=== PATIENT | female | born 1935 | race American Indian/Alaskan Native ===

== ENCOUNTER → 2016-09-21 | Outpatient (CLI) | payer OTHER ==
[2016-09-21 16:37] LABS: BASOPHILS # (AUTO) 0.03 10*3/UL; BASOPHILS % (AUTO) 0.5 % (0-1); EOSINOPHILS % (AUTO) 2.5 % (0-8); HEMATOCRIT 31.9 % (37.0-47.0); HEMOGLOBIN 10.1 g/dL (12.0-16.0); IMM GRAN % (AUTO) 0.2 % (0-5); IMM GRAN# (AUTO) 0.01 10*3/UL; LYMPHOCYTES # (AUTO) 1.37 10*3/uL; LYMPHOCYTES % (AUTO) 24.6 % (10-50); MEAN CORPUSCULAR HEMOGLOBIN 27.8 PG (27-31); MEAN CORPUSCULAR HGB CONC 31.7 g/dL (33-37); MEAN PLATELET VOLUME 9.1 FL (7.4-12.2); MONOCYTES # (AUTO) 0.43 10*3/UL (0.3-0.8); MONOCYTES % (AUTO) 7.7 % (5-15); NEUTROPHILS % (AUTO) 64.5 % (50-80); RDW COEFFICIENT OF VARIATION 14.7 % (11.5-14.5); RED BLOOD COUNT 3.63 10^6/uL (4.20-5.40); WHITE BLOOD COUNT 5.58 10^3/uL (4.8-10.8)
[2016-09-21 16:38] LABS: BILIRUBIN,TOTAL 0.5 mg/dL (0.3-1.2); CALCIUM 9.7 mg/dL (8.7-10.7); POTASSIUM 3.6 meq/L (3.8-5.2); TOTAL PROTEIN 6.8 g/dL (6.1-8.0)
[2016-09-21 17:22] LABS: PLATELET MORPHOLOGY COMMENT NORMAL MORPHOLOGY (NORM)
== END ==
LOC: MOB LAB 15:25
DX: D64.9 Anemia, unspecified (principal); E55.9 Vitamin D deficiency, unspecified; I42.0 Dilated cardiomyopathy; I27.2 Other secondary pulmonary hypertension
CPT/HCPCS: 36415; 80053; 82306; 84443; 85025

== ENCOUNTER 2016-11-20 20:35 | Inpatient (IN) | payer OTHER ==
[2016-11-20] MEDS ORDERED: NORMAL SALINE 10 ML SYRINGE FLUSH IVP PRN ×2 (21:15→23:54)
[2016-11-20] MEDS ORDERED: Sodium Chloride 0.9% 1,000 ML PRIMARY IV ONE (21:15)
[2016-11-20] MEDS ORDERED: IPRATROPIUM/ALBUTEROL SULFATE 3 ML NEB NEB ONE (21:20)
[2016-11-20 21:26] LABS: BASOPHILS # (AUTO) 0.03 10*3/UL; BASOPHILS % (AUTO) 0.5 % (0-1); EOSINOPHILS # (AUTO) 0.12 10*3/UL; HEMATOCRIT 27.4 % (37.0-47.0); LYMPHOCYTES # (AUTO) 1.03 10*3/uL; MEAN CORPUSCULAR HEMOGLOBIN 27.2 PG (27-31); MEAN CORPUSCULAR HGB CONC 29.2 g/dL (33-37); MEAN CORPUSCULAR VOLUME 93.2 FL (81-99); MONOCYTES # (AUTO) 0.41 10*3/UL (0.3-0.8); MONOCYTES % (AUTO) 6.7 % (5-15); NEUTROPHILS # (AUTO) 4.48 10*3/UL; NEUTROPHILS % (AUTO) 73.7 % (50-80); RED BLOOD COUNT 2.94 10^6/uL (4.20-5.40)
[2016-11-20 21:29] LABS: PLATELET MORPHOLOGY COMMENT NORMAL MORPHOLOGY (NORM); RBC MORPHOLOGY COMMENT NORMAL MORPHOLOGY (NORM); WBC MORPHOLOGY COMMENT NORMAL MORPHOLOGY (NORM)
[2016-11-20 21:39] LABS: CALCIUM 9.7 mg/dL (8.7-10.7); SERUM ALBUMIN 3.4 g/dL (3.5-4.8)
[2016-11-20 21:44] LABS: CREATINE KINASE MB 0.95 NG/ML (0.00-5.00); TROPONIN I 0.047 ng/mL (< 0.040)
--- NOTE | 2016-11-20 21:50 | EKG ---
[address] [place] [address] Measurements Intervals [place] Rate: 52 P: MD: 0 QRS: -20 QRSD: 122 T: 76 QT: 471 QTc: 452 Interpretive Statements PROBABLE ATRIAL FIBRILLATION WITH [facility] OR ABERATED CONDUCTION INTRVENTRICULAR CONDUCTION DELAY SUGGEST LONG RHYTHM STRIP Compared to ECG 03/20/2014 23:00 No significant change Electronically Signed On 11-21-16 08:55:03 MDT by Eric Yu [id number]
[2016-11-20 21:51] LABS: VENOUS PH 7.3 (7.32-7.42)
[2016-11-20] MEDS ORDERED: FUROSEMIDE 10 MG/1 ML - 2 ML VIAL IVP ONE (22:19)
--- NOTE | 2016-11-20 22:28 | PDOC ---
General Adult HPI - General Chief Complaint: General Medical Stated Complaint: shortness of breath; hypoxia, confusion Date Seen by Provider: 11/20/16 Time Seen by Provider: 20:45 Source: POSITIVE: Patient, EMS, Other (daughter) Exam Limitations: POSITIVE: No limitations Nurse's Notes Reviewed & Considered: Yes EMS Report Reviewed & Considered: Verbal - History of Present Illness Initial Comment: The patient is an 81-year-old female who is brought to the emergency room by ambulance. The patient lives with her daughter; daughter has medical power of human resource adviser for the patient. Daughter states that she returned home from supper and noticed that her mother was poorly responsive and seems somewhat confused. She noticed that her nasal cannula from which the patient receives oxygen, had slipped off her nose. The daughter measured the patient's SaO2 and she states that she found it to be 65%. The daughter replaced the patient's cannula and increased her oxygen to 4-5 L (patient is normally on 3-4 L) per minute, and patient seemed to perk up. The patient's daughter states that the patient has a history of atrial fibrillation for which she takes Xarelto. Daughter reports that the patient had a sizable epistaxis yesterday and another episode 8 days ago. Review of medical records shows that the patient has a history of chronic renal failure and congestive heart failure and atherosclerotic cardiovascular disease. Patient is very hard of hearing. She denies any head, chest or abdominal pain. She states she is somewhat short of breath. No history of fever recently. No cough. Have you received a tetanus shot in the past 10 years?: Yes Body Location Affected: REPORTS: Chest (Shortness of breath) Timing: REPORTS: Gradual Duration: <24 hours Severity: Moderate Quality: REPORTS: Other (Patient denies any pain anywhere) Context: REPORTS: None, Sitting, Standing, Activity, Emotional stress, Coughing , Recent Trauma, Recent Surgery, Sleep, Rest, Lifting, Turning, Bending, Fall, Near Fall, Other Modifying Factors: improves with: Nothing Similar Symptoms Previously: Yes Recent Care Received: REPORTS: Denies Any Prior Injuries Related to Current Complaint?: No - Patient Home Medications Home Medications: Home Medications Albuterol/Ipratrop Neb Soln [Duoneb Neb Soln] 3 ml INH Q4H PRN PRN 04/03/14 Calcium Carbonate/Vitamin D3 [Calcium 600 + Vit D 200 Tablet] 1 tab PO BID 04/03 Polyethylene Glycol 3350 [Miralax] 17 gm PO PRN PRN 04/03/14 Acetaminophen [Tylenol Extra Strength] 1 tab PO QD PRN #30 tab 10/05/15 Albuterol Sulfate [Ventolin Hfa] 90 mg INH Q4H PRN PRN #2 inhaler 10/05/15 Cranberry Extract [Cranberry] 1 cap PO BID #60 cap 10/05/15 Miconazole Nitrate 1 gm MC BID PRN #1 10/05/15 Nystatin 1 each MC TID PRN #30 bottle 10/05/15 Erlin Reyes [Preparation H Totables] 1 each TOPICAL QD PRN #48 10/05/15 Pantoprazole Sodium [Protonix] 1 tab PO QD #90 tab 05/18/16 Nitroglycerin SL Tab [Nitrostat Sl Tab] 1 tab PO PRN PRN #9 tab 05/23/16 Cephalexin [Keflex] 1 cap PO QD #30 cap 05/25/16 Carvedilol 1 tab PO BID #60 tab 06/08/16 Fluticasone/Salmeterol [Advair 500-50 Diskus] 1 puff INH BID #2 inhaler Allopurinol 2 tab PO QD #60 tab 09/18/16 Isosorbide Mononitrate [Isosorbide Mononitrate Er] 1 tab PO TID #90 tab Multivitamin with Minerals [Icaps Plus] 1 tab PO QD #30 tab 09/21/16 Potassium Chloride 1 tab PO TID #90 tab 09/26/16 Amlodipine Besylate 1 tab PO QD #90 tab 10/23/16 Furosemide [Lasix] 0.5 tab-cap PO BID #45 tab-cap 10/27/16 Rivaroxaban [Xarelto] 1 tab PO QD #30 tab 10/31/16 - Patient Allergies Allergies/Adverse Reactions: Allergies Allergy/AdvReac Type Severity Reaction Status Date / Time latex [Latex] Allergy Severe RASH Verified 11/20/16 20:51 linezolid [From Zyvox] Allergy Severe leukopenia Verified 11/20/16 20:51 morphine Allergy Severe ITCHING Verified 11/20/16 20:51 Penicillins Allergy Severe RASH Verified 11/20/16 20:51 vancomycin Allergy Severe FLUSHING Verified 11/20/16 20:51 bacitracin Allergy Intermediate rash Verified 11/20/16 20:51 [From Neosporin ([id number])] bacitracin zinc Allergy Intermediate rash Verified 11/20/16 20:51 [From Neosporin ([id number])] diphenhydramine HCl Allergy Intermediate RASH Verified 11/20/16 20:51 [From Benadryl] neomycin sulfate Allergy Intermediate rash Verified 11/20/16 20:51 [From Neosporin ([id number])] polymyxin B Allergy Intermediate rash Verified 11/20/16 20:51 [From Neosporin ([id number])] adhesive tape [Adhesive Tape] AdvReac Intermediate RASH Verified 11/20/16 20:51 Past Medical History - heen HEENT History: Cataracts, Hard of Hearing, Dentures/Partials, Other (please comment) Additional HEENT History: wears glasses for reading Cardiovascular History: Hypertension, CHF, CAD, Arrhythmia, DVTs Additional Cardiovasular History: 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 Chronic A-fib. Pulmonary hypertension Respiratory History: Asthma, COPD, Sleep Apnea, Home Oxygen Use, Home CPAP Use Additional Respiratory History: Wears 2-4L at home Gastrointestinal History: GERD, Other (please comment) Additional Gastrointestinal History: large hernia RLQ, Robert's esophagus, abcessed appe Genitourinary History: Recurrent UTI, Renal Disease, Kidney Stones, Incontinence , Renal Failure Endocrine History: Denies History Musculoskeletal History: Arthritis, Osteoporosis, Gout, Muscle Weakness, Limited ROM, Joint Pain, Physical Limitation Prosthesis or Implant: Yes Additional Musculoskeletal History: L) TKA. R)Ankle Fx x 2 Neurological History: Encephalitis, Other (please comment) Additional Neurological History: Previous Neck Surgeries, fusion of cervical region. "sundowners" Blood Disorders: Anemia, Clotting Disorders, Previous Bld Transfusions, Other ( please comment) Additional Blood Disorders History: pt on xarelto Psychiatric History: Depression History of Sexually Transmitted Diseases: No Female Reproductive History: Other (please comment) Additional Female Reproductive History: cervical cancer after second child Obstetrical History: Denies History Cancer History: Other (please comment) Cancer Treatment / Date(s) of Treatment: 1969 In Past Year Been Physically Harmed or Verbally Threatened: No History of MDRO: Yes History of Other Communicable Diseases: No Tobacco Use: Former Smoker Alcohol Use: Rarely Substance Use Type: None Previous Surgical History: Yes Type / Date of Surgery: C4-5,6-7 cervical fusion, cholecystectomy, total abdominal hysterectomy, left total knee replacement complicated with MRSA infection requiring removal, and placement of a spacer, appendectomy, kidnes stones removed. Anesthesia Reactions: No Malignant Hyperthermia: No Significant Family History: Asthma, Heart disease, Cancer, Diabetes, Hypertension Past Medical History Reviewed: Reviewed - No Changes ROS - Limitations ROS Limitations: No Limitations Constitution: REPORTS: Denies Symptoms Cardiovascular: REPORTS: Blood Pressure Problem (Blood pressure has been somewhat elevated today according to daughter; blood pressure on arrival was 153 /103) Respiratory: REPORTS: Shortness Of Breath Neurological: REPORTS: Confusion (As above) Gastrointestinal: REPORTS: Denies GI Symptoms Endocrine: REPORTS: Denies Symptoms Musculoskeletal: REPORTS: Denies MS Symptoms Genitourinary: REPORTS: Denies Symptoms Eyes: REPORTS: Denies Symptoms ENT: REPORTS: Hearing Loss (Very hard of hearing), Nose Bleed (Yesterday and ate days ago) Skin: REPORTS: Denies Skin Symptoms Lympathic: REPORTS: Denies Lympathic Symptoms Immunologic: POSITIVE: Denies Symptoms Psychiatric: POSITIVE: Denies Psych Symptoms General Adult Exam - General Appearance General Appearance: POSITIVE: Alert, Cooperative, No Acute Distress, No Evidence of Trauma - HEENT HEENT: POSITIVE: Head Inspection Nml, Eyes Inspection Nml, Ears Inspection Nml, Nose Inspection Nml, Oral/Dental Inspect. Nml, Pharynx Inspect. Nml, PERRL, EOMI - Pupils Pupil Size: 4 mm: Bilateral (PERRLA) - Neck Neck: POSITIVE: Normal Inspection, Thyroid Normal - Respiratory Respiratory: POSITIVE: Rales (Diffuse rales both lung loya) - Cardiovascular Cardiovascular: POSITIVE: No Gallop, PMI Normal, Decreased Pulse (Pulse around 50/m), Irregularly Irreg. Rhythm (Mildly irregularly irregular), Murmur (Grade 1 to 2/6 systolic ejection murmur over her precordium) Peripheral Pulses: Radial (R): 2+, Radial (L): 2+ Murmur: Systolic: Grade 2 - Abdomen Abdomen: Soft: (All Quadrants), Normal Bowel Sounds: (All Quadrants), Denies Tenderness: (All Quadrants), No Splenomegaly: (All Quadrants), No Hepatomegaly: (All Quadrants), No Guarding: (All Quadrants), No Rebound: (All Quadrants), No Palpable Pulse: (All Quadrants), No Palpabale Mass: (All Quadrants), No Distention: (All Quadrants), No Rigidity: (All Quadrants) Additional Abdominal Details: Abdominal wall hernia right upper abdomen - Back Back: POSITIVE: Normal Inspection - Skin Skin: POSITIVE: Normal Color, Warm, Dry, No Rash - Extremities Extremity: Non-Tender: (All Extremities), Normal ROM: (All Extremities), Normal Inspection: (All Extremities) - Neurological / Psychological Neurological: POSITIVE: 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 Lab Results Reviewed: Yes (BNP over 4000) Lab Results:: Laboratory Results 11/20/16 11/20/16 Range/Units 20:30 21:38 WBC 6.08 (4.8-10.8) 10^3/uL RBC 2.94 L (4.20-5.40) 10^6/uL Hgb 8.0 L (12.0-16.0) g/dL Hct 27.4 L (37.0-47.0) % MCV 93.2 (81-99) FL MCH 27.2 (27-31) PG MCHC 29.2 L (33-37) g/dL RDW Std Deviation 52.1 H (39-50) fL RDW Coeff of Elli 16.1 H (11.5-14.5) % Plt Count 140 (140-350) 10*3/uL MPV 9.0 (7.4-12.2) FL Immature Gran % (Auto) 0.2 (0-5) % Neut % (Auto) 73.7 (50-80) % Lymph % (Auto) 16.9 (10-50) % Miner % (Auto) 6.7 (5-15) % Eos % (Auto) 2.0 (0-8) % Baso % (Auto) 0.5 (0-1) % Immature Gran # (Auto) 0.01 10*3/UL Neut # (Auto) 4.48 10*3/UL Lymph # (Auto) 1.03 10*3/uL Miner # (Auto) 0.41 (0.3-0.8) 10*3/UL Eos # (Auto) 0.12 10*3/UL Baso # (Auto) 0.03 10*3/UL WBC Morphology Comment Normal morphology (NORM) Plt Morphology Comment Normal morphology (NORM) RBC Morph Comment Normal morphology (NORM) PT 12.3 H (9.7-11.4) secs INR 1.19 (0.00-5.90) N/A D-Dimer 0.29 (0.00-0.59) mg/L VBG pH 7.30 L (7.32-7.42) VBG pCO2 83 H (45-55) mmHg VBG HCO3 41 H (22-26) mmol/L VBG Base Excess 15 H (-2-2) MMOL/L Sodium 142 (135-145) meq/L Potassium 5.1 (3.8-5.2) meq/L Chloride 95 L (98-112) meq/L Carbon Dioxide 39 H (23-33) meq/L Anion Gap 8 (5-20) BUN 33 H (7-22) mg/dL Creatinine 1.1 (0.50-1.20) mg/dL Estimated GFR (>60 ml/min/1.73m(2)) BUN/Creatinine Ratio 30.00 H (6-20) Glucose 100 (78-110) mg/dL Calculated Osmolality 300.0 H (267-292) mOsm/kg Calcium 9.7 (8.7-10.7) mg/dL Total Bilirubin 0.5 (0.3-1.2) mg/dL AST 21 (8-39) IU/L ALT 26 (9-52) IU/L Alkaline Phosphatase 47 (38-126) IU/L CK-MB (CK-2) 0.95 (0.00-5.00) NG/ML Troponin I 0.047 H (< 0.040) ng/mL NT-Pro-B Natriuret Pep 4410 H (0-450) PG/ML Total Protein 5.6 L (6.1-8.0) g/dL Albumin 3.4 L (3.5-4.8) g/dL Globulin 2.2 L (2.50-4.10) g/dL Albumin/Globulin Ratio 1.50 (1.3-2.0) mg/g EKG Interpreted/Reviewed By Me:: Yes (atrial fibrillation with a ventricular response of around 50) EKG Interpretation:: POSITIVE: Normal Intervals, Normal QRS, Normal ST/T, Abnormal EKG (Atrial fibrillation with a slow ventricular response) - Patient's Progress Pain Medication Addressed: POSITIVE: Not Applicable School/Work Release Addressed: POSITIVE: Not Applicable Re-Examine Time: 22:00 Re-Examine Comment: Patient given Lasix 20 mg IV. Patient has remained comfortable in the emergency room and she maintained her oxygen saturation at around 96% on 4 L. Review of most recent laboratory values show that on 2016 her hemoglobin was 10.1 and hematocrit was 31.9, and today her hemoglobin is 8.0 and hematocrit is 27.4; likely patient has dropped her hematocrit and hemoglobin as result of for 2 episodes of recent epistaxes, which could be contributing to her shortness of breath. Renal functions are okay at this time. Diagnosis of congestive heart failure and anemia discussed with the patient and her daughter. Patient is admitted to hospitalist for further evaluation and treatment. Status: POSITIVE: Unchanged, Re-Examined Antibiotics Given: No - Consult Consult (If Yes, Name of Consulting MD & Time Called): Yes (Dr. Ochoa, hospitalist, [id number]) Consulting MD will see pt:: POSITIVE: [facility] Admit Counseled: POSITIVE: Patient, Family, RE: Lab Results, RE: Radiology Results, RE : DX, RE: Need for F/U Patient Care Time - Estimated PCT Patient Care Time (In Minutes): 55 Vital Signs - Recent Vital Signs Vital Signs: Vital Signs (Last 8 hours) Temp Pulse Resp BP Pulse Ox 11/20/16 20:40 98.5 F 44 L 20 150/103 96 - VS Reviewed Vital Signs Reviewed: Yes Discharge Clinical Impression: Congestive heart failure, Anemia Discharge Disposition: Admit to Inpatient Condition: Fair Date Decision to Admit to Inpatient: 11/20/16 Time Decision to Admit to Inpatient: 22:00
--- NOTE | 2016-11-20 22:49 | PDOC ---
History and Physical - History of Present Illness Date and Time of Service: 11/20/2016 11:30 PM Chief Complaint: Episode of for repeat mental status while oxygen saturation was low, high blood pressure and low pulse rate today History of Present Illness: This is a 81 years old female with medical history significant for history of atrial fibrillation on anticoagulation, COPD on oxygen, hypertension, gout, history of urinary tract infection on suppressive treatment, history of coronary artery disease with previous stents and history of peripheral neuropathy who was brought to the hospital by ambulance. The daughter who is her health care coordinator she said that the [facility] and noticed her mother was not acting right, her eyes were "glazed" and did not follow her finger when she instructed the mother to do so, her nasal cannula seems to be slipped off from the nose, The daughter measured her oxygen sats and was 65 so she increased her oxygen gradually until she gets to the 90s she did check her blood pressure and her blood pressure was elevated and her pulse was low so she was concerned and brought her to the ER. Evaluation in the ER revealed anemia, bradycardia and retention of CO2 and she was admitted. She did receive a dose of Lasix as her BNP was elevated and they thought that she had congestive heart failure. The patient herself is awake she is hard of hearing she is denying chest pain, intermittently she said she has some shortness of breath. There is no swelling in the legs. The daughter said that the about 9 days ago there was significant bleeding from her nose it took them 12 hours for the bleeding to stop they continued with Xarelto and she had another bleeding 2 days ago. it was not as bad as the previous one. Intermittently since she had the bleeding she is complaining from shortness of breath that doesn't last long. There is no pain in the chest though. There is a history of anemia and she did have blood transfusion in the past. She is denying urinary symptoms and no abdominal pain. She is very limited in what she is able to do apparently the daughter helps her with the hygiene and getting up and going to the bathroom. She spends her days mainly in the bed or the sitting in chair. Past Medical History Medical History: 1. History of atrial fibrillation currently on Xarelto. 2. 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 3. Hypertension. 4. Coronary artery disease status post the stenting to LAD by 2 in 2009. 5. Sleep apnea. 6. GERD. 7. Osteoarthritis. 8. Idiopathic peripheral neuropathy. 9. Hearing loss. 10. History of gout. 11. Pulmonary hypertension, echocardiogram done in 2013 showed LVH with the ejection fraction 65% pulmonary hypertension PA pressure was 65, aortic sclerosis with no stenosis. 12. History of previous admission to the hospital 2014 at that time she had urinary tract infection and she was transferred to [facility] she was intermittently confused and that was attributed to the UTI. Although there was question of dementia but the patient' s daughter denies that. Surgical History: 1. Cholecystectomy. 2. Appendectomy. 3. Hysterectomy with bilateral salpingo-oophorectomy secondary to cervical cancer. 4. Left total knee arthroplasty in 2007. 5. C4 6 fusion and 90 Family History: Reviewed an Not Pertinent Past Social History: Used to smoke, rarely drinks no drugs. Lives with her daughter is the main caregiver. Tobacco Use: Former Smoker Substance Use Type: None Alcohol Use: Rarely Medication / Allergies Home Medications: Home Medications Medication Instructions Recorded Confirmed Type Albuterol/Ipratrop Neb Soln 3 ml INH Q4H PRN PRN 04/03/14 11/20/16 History [Duoneb Neb Soln] Calcium Carbonate/Vitamin D3 1 tab PO BID 04/03/14 11/20/16 History [Calcium 600 + Vit D 200 Tablet] Polyethylene Glycol 3350 [Miralax] 17 gm PO PRN PRN 04/03/14 11/20/16 History Acetaminophen [Tylenol Extra 1 tab PO QD PRN #30 tab 10/05/15 11/20/16 Clinic Strength] Albuterol Sulfate [Ventolin Hfa] 90 mg INH Q4H PRN PRN #2 inhaler 10/05/1511/20 Clinic Cranberry Extract [Cranberry] 1 cap PO BID #60 cap 10/05/15 11/20/16 Clinic Miconazole Nitrate 1 gm MC BID PRN #1 10/05/15 11/20/16 Clinic Nystatin 1 each MC TID PRN #30 bottle 10/05/15 11/20/16 Clinic Erlin Reyes [Preparation H 1 each TOPICAL QD PRN #48 10/05/15 11/20/16 Clinic Totables] Pantoprazole Sodium [Protonix] 1 tab PO QD #90 tab 05/18/16 11/20/16 Clinic Nitroglycerin SL Tab [Nitrostat 1 tab PO PRN PRN #9 tab 05/23/16 11/20/16 Clinic Sl Tab] Cephalexin [Keflex] 1 cap PO QD #30 cap 05/25/16 11/20/16 Clinic Carvedilol 1 tab PO BID #60 tab 06/08/16 11/20/16 Clinic Fluticasone/Salmeterol [Advair 1 puff INH BID #2 inhaler 08/28/16 11/20/16 Clinic 500-50 Diskus] Allopurinol 2 tab PO QD #60 tab 09/18/16 11/20/16 Clinic Isosorbide Mononitrate [Isosorbide 1 tab PO TID #90 tab 09/21/16 11/20/16 Clinic Mononitrate Er] Multivitamin with Minerals [Icaps 1 tab PO QD #30 tab 09/21/16 11/20/16 Clinic Plus] Potassium Chloride 1 tab PO TID #90 tab 09/26/16 11/20/16 Clinic Amlodipine Besylate 1 tab PO QD #90 tab 10/23/16 11/20/16 Clinic Furosemide [Lasix] 0.5 tab-cap PO BID #45 tab-cap 10/27/16 11/20/16 Clinic Rivaroxaban [Xarelto] 1 tab PO QD #30 tab 10/31/16 11/20/16 Clinic Allergies/Adverse Reactions: Allergies Allergy/AdvReac Type Severity Reaction Status Date / Time latex [Latex] Allergy Severe RASH Verified 11/20/16 20:51 linezolid [From Zyvox] Allergy Severe leukopenia Verified 11/20/16 20:51 morphine Allergy Severe ITCHING Verified 11/20/16 20:51 Penicillins Allergy Severe RASH Verified 11/20/16 20:51 vancomycin Allergy Severe FLUSHING Verified 11/20/16 20:51 bacitracin Allergy Intermediate rash Verified 11/20/16 20:51 [From Neosporin ([id number])] bacitracin zinc Allergy Intermediate rash Verified 11/20/16 20:51 [From Neosporin ([id number])] diphenhydramine HCl Allergy Intermediate RASH Verified 11/20/16 20:51 [From Benadryl] neomycin sulfate Allergy Intermediate rash Verified 11/20/16 20:51 [From Neosporin ([id number])] polymyxin B Allergy Intermediate rash Verified 11/20/16 20:51 [From Neosporin ([id number])] adhesive tape [Adhesive Tape] AdvReac Intermediate RASH Verified 11/20/16 20:51 Review of Systems - Review of Systems All Systems: Reviewed & No Additional Complaints Except as Stated Exam - General General Appearance: POSITIVE: No Acute Distress, Cooperative, Obese - Head Head Exam: POSITIVE: Normal Inspection, Atraumatic - Eye Eye Exam: POSITIVE: Normal Appearance - ENT ENT Exam: POSITIVE: Normal Exam - Neck Neck Exam: POSITIVE: Normal Inspection - Respiratory Additional Respiratory Exam Details: Minimal crackles at the bases - Cardiovascular Cardiovascular Exam: POSITIVE: RRR - GI/Abdominal GI/Abdominal Exam: POSITIVE: Normal Bowel Sounds, Non Tender, Non Distended, Soft, No Organomegaly Additional GI/Abdominal Exam Details: Ventral hernia noted - Rectal Rectal Exam: POSITIVE: Deferred - External Exam: POSITIVE: Deferred Exam: POSITIVE: Deferred - Extremities Additional Extremities Exam Details: Chronic dermatitic changes noted in both lower extremities there is trace edema - Neurological Neurological Exam: POSITIVE: Alert, Oriented x 3, CN II-XII Intact, Moves All Extremities Equally - Psychiatric Psychiatric Exam: POSITIVE: Normal Affect - Integumentary Integumentary Exam: POSITIVE: Pallor Results - Labs CBC and BMP: 11/20/16 20:30 11/20/16 20:30 - EKG Data -: EKG Interpreted by Me - EKG Data Additional EKG Details: EKG showed bradycardia, heart to say with [place] rhythm though, rate is 44, it's regular narrow complex. There is a interference and that's why it started tell what kind of rhythm is - Imaging Status: Image Reviewed by Me (Chest x-ray showed cardiomegaly, with atelectasis , possible venous congestion) Assessment and Plan - Patient Problems (1) Anemia Current Visit: Yes Status: Acute Comment: Because of her symptomatic anemia including intermittent shortness of breath and drop in hemoglobin I discussed with the radhikahter transfusion and she is agreeable will give her blood and will give her Lasix in between. (2) Elevated brain natriuretic peptide (BNP) level Current Visit: Yes Status: Acute Comment: I think the elevated BNP is due mainly to pulmonary hypertension, they gave Lasix in the ER will give her Lasix in between transfusion, will give the units slowly. Her previous l echo showed normal ejection fraction. Her JVP is not elevated today. (3) Hypertension Current Visit: Yes Status: Acute Comment: Continue previous medication (4) Bradycardia Current Visit: Yes Status: Acute Comment: Hard to say the type of rhythm as there is a some baseline interference ,but it is regular will put her on telemetry and then will decide if we need to adjust the dosage of the Coreg. (5) Acute and chronic respiratory failure Current Visit: Yes Status: Acute Comment: Maybe the fact that she was off oxygen for a period of time caused worsening retention of CO2 plus she is has sleep apnea and she is not wearing her CPAP. I think we'll try Vapotherm and see whether that would lower her CO2 and will repeat her venous blood gas. The fact that she is awake suggest that probably she has a chronic CO2 retention. Continue with her previous inhalers (6) History of atrial fibrillation Current Visit: Yes Status: Acute Comment: We'll continue with her Xarelto. We may need to lower the dosage of the Coreg if she remained bradycardic Photo / Body Diagrams - Uploaded Photos Uploaded Photos:
[2016-11-20] MEDS ORDERED: LIDOCAINE W/ SODIUM BICARB 0.5 ML SYR SUBD PRN (23:54)
[2016-11-20] MEDS ORDERED: ALBUTEROL SULFATE 8.5 GM HFA INHALER INH PRN (23:58)
[2016-11-21] MEDS ORDERED: FUROSEMIDE 10 MG/1 ML - 2 ML VIAL IVP ONE
[2016-11-21] MEDS ORDERED: Sodium Chloride 0.9% 500 ML PRIMARY IV ONE
[2016-11-21] MEDS ORDERED: IPRATROPIUM/ALBUTEROL SULFATE 3 ML NEB NEB PRN (00:29)
[2016-11-21] MEDS ORDERED: ALLOPURINOL 100 MG TABLET PO SCH ×2 (00:38→09:00)
[2016-11-21] MEDS ORDERED: CARVEDILOL 6.25 MG TABLET PO SCH ×2 (00:45→09:00)
[2016-11-21] MEDS ORDERED: CEPHALEXIN 500 MG CAPSULE PO SCH ×2 (00:45→09:00)
--- NOTE | 2016-11-21 00:54 | EKG ---
[address] [address] Measurements Intervals [place] Rate: 52 P: PA: 0 QRS: -14 QRSD: 117 T: 71 QT: 408 QTc: 387 Interpretive Statements MAARKED BASELINE ARTIFACT UNDETERMINED RHYTHM WITH VPCS OR ABERRATED CONDUCTION MODERATE INTRAVENTRICULAR CONDUCTION DELAY [110+ ms QRS DURATION] SUGGEST REPEAT TRACING Compared to ECG 11/20/2016 21:30:53 Intraventricular conduction delay now present Myocardial infarct finding no longer present Electronically Signed On 11-21-16 08:49:22 MDT by Eric Yu [email or web address]
[2016-11-21] MEDS: ISOSORBIDE MONONITRATE 30 MG SR 24H TABLET PO SCH ×2 (01:11→08:57)
[2016-11-21] MEDS ORDERED: FUROSEMIDE 40 MG TABLET PO SCH (07:00)
[2016-11-21] MEDS ORDERED: POTASSIUM CHLORIDE 20 MEQ TAB PO SCH (07:00)
[2016-11-21] MEDS ORDERED: PANTOPRAZOLE 40 MG TABLET PO SCH (07:00)
--- NOTE | 2016-11-21 08:18 | DI ---
XR CXR 2VW PA/LAT,11/20/2016 9:15 PM: Clinical History: Dyspnea and hypoxia. Previous Exam: April 21, 2014 Findings: PA and lateral views of the chest are obtained, and demonstrate some increased airspace disease withi n the lung bases with some silhouetting of the right hemidiaphragm. There is stable cardiomegaly. Postsurgical changes are seen in the neck consistent with anterior screw and plate fixation. Impression: Increased density within the lung bases with cardiomegaly. This could represent edema and pleural eff usions or could also represent some early pneumonia within the lung bases.
--- NOTE | 2016-11-21 08:51 | PDOC(PROG) ---
Date and Time of Service: 11/21/2016 8:47 AM Interval History: Subjective She is denying chest pain, denying significant shortness of breath, she said she is intermittently dizzy though. Objective : Data - Labs CBC and BMP: 11/20/16 20:30 11/20/16 20:30 Labs - Last 24 Hours: Laboratory Results 11/21/16 Range/Units 00:20 Blood Type B POSITIVE Antibody Screen Negative Crossmatch See Detail Objective : Exam - General General Appearance: No Acute Distress, Cooperative, Obese - Head Head Exam: Normal Inspection - Eye Eye Exam: Normal Appearance - ENT ENT Exam: Normal Exam - Neck Neck Exam: Normal Inspection - Respiratory Additional Respiratory Exam Details: Minimal crackles at the bases - GI/Abdominal GI/Abdominal Exam: Normal Bowel Sounds, Non Tender, Non Distended, Soft - Rectal Rectal Exam: Deferred - External Exam: Deferred - Extremities Extremities Exam: Normal Inspection - Back Back Exam: Normal Inspection - Neurological Neurological Exam: Alert, Oriented x 3 - Psychiatric Psychiatric Exam: Normal Affect - Integumentary Integumentary Exam: Normal Color Assessment and Plan - Patient Problems (1) Anemia Current Visit: Yes Status: Acute Comment: She is Getting her second unit of blood and will recheck her labs post the transfusion (2) Elevated brain natriuretic peptide (BNP) level Current Visit: Yes Status: Acute Comment: We gave Lasix between units of blood and will continue her usual Lasix. I think it's more related to her pulmonary hypertension (3) Hypertension Current Visit: Yes Status: Acute Comment: Same medication (4) Bradycardia Current Visit: Yes Status: Acute Comment: Intermittently she is going into lower rate 40 and some times 30s, the rhythm is narrow QRS complex bradycardia I spoke with Dr. Cervantes I sent him the EKG and the tracing and then he'll call me back and to see whether she need to have a pacemaker we did stop the Coreg (5) Acute and chronic respiratory failure Current Visit: Yes Status: Acute Comment: She is on Vapotherm will recheck it venous blood gas after the transfusion (6) History of atrial fibrillation Current Visit: Yes Status: Acute Comment: We'll hold the Xarelto for now until I see the recommendation of Dr. Cervantes. Photo / Body Diagrams - Uploaded Photos Uploaded Photos:
[2016-11-21] MEDS ORDERED: Rivaroxaban Tab 10 MG TAB PO SCH (09:00)
[2016-11-21] MEDS ORDERED: ISOSORBIDE MONONITRATE 30 MG SR 24H TABLET PO SCH (09:00)
[2016-11-21] MEDS ORDERED: FLUTICASONE/SALMETEROL 500/50 UD INHALER INH SCH ×2 (09:00→19:00)
[2016-11-21 09:09] VITALS: RESP 22; TEMP 98
--- NOTE | 2016-11-21 09:43 | DCSUMMARY ---
Hospitalization Summary Admit Date: 11/20/16 Discharge Date: 11/21/16 Hospital Course: Transfer diagnoses 1. Significant bradycardia 2. History of A. fib 3. Anemia status post 2 units of blood transfusion 4. Acute on chronic respiratory failure 5. Hypertension 6. History of coronary artery disease with previous stents 2009 7. Sleep apnea 8. Idiopathic peripheral neuropathy 9. GERD 10. History of gout 11. History of pulmonary hypertension 12. History of urinary tract infection on suppressive antibiotic treatment 13 COPD on oxygen Hospital course This is a 81 years old female with medical history significant for history of atrial fibrillation , COPD on oxygen, hypertension, history of gout, history of urinary tract infection on suppressive antibiotic treatment, history of coronary artery disease with previous stents and history of peripheral neuropathy who was brought to the hospital by ambulance. The daughter who is a caregiver said that when [facility] was not acting right, her eyes were glazed and did not follow her finger when she instructed the mother to do so, her nasal cannula seemed to be slipped off from the nose, the daughter measured her oxygen sats and was 65% so she increased her oxygen gradually until she got to the 90s, she did check her blood pressure and her blood pressure was elevated and pulse was low so she was concerned and brought her to the hospital. Evaluation in the ER revealed anemia , bradycardia and retention of CO2 so she was admitted. When I saw her she was awake she was hard of hearing though she was denying chest pain, she has intermittent shortness of breath intermittent dizziness. There was also report of some bleeding from her nose secondary to probably a Xarelto 9 days ago and also 2 days ago. JVP was not raised with chronic dermatitic changes in the legs , because of her anemia and CO2 retention we gave 2 units of blood, we put her on Vapotherm. Her EKG showed the regular narrow QRS complex bradycardia, hard to say the rhythm type but appeared regular. We stopped the Coreg. Overnight intermittently her rhythm would go down to the 30s and 40s the rhythm is narrow QRS complex regular. Suggestive of AV block. Today because of this intermittent abnormalities in the rhythm I spoke with Dr. Cervantes we sent him the EKG and the rhythm he suggested transfer for pacemaker. I spoke with the patient's and she accepted transfer. Daughter was also informed about the decision for transfer. PCO2 when she came in was 83, repeat this morning showed a PCO2 of 44. PH also went up from 7.3-7.44. We've held her Xarelto today. The official reports of the chest x-ray suggests increased density within the lung bases with cardiomegaly, this could represent edema pleural effusion or could also represent some early pneumonia. We did give her Lasix IV before the transfusion and in between. We continued with her regular Lasix. Clinically I don't think it's pneumonia. Probably the slow rhythm is contributing to the venous congestion. Her repeat hemoglobin posttransfusion was 9.4. We gave her blood because of anemia and the symptoms of shortness of breath when she came i in addition she has a history of coronary artery disease and COPD which we thought that hemoglobin between 9 and 10 is a target for her. Laboratory Results 11/20/16 11/20/16 11/21/16 Range/Units 20:30 21:38 00:20 WBC 6.08 (4.8-10.8) 10^3/uL RBC 2.94 L (4.20-5.40) 10^6/uL Hgb 8.0 L (12.0-16.0) g/dL Hct 27.4 L (37.0-47.0) % MCV 93.2 (81-99) FL MCH 27.2 (27-31) PG MCHC 29.2 L (33-37) g/dL RDW Std Deviation 52.1 H (39-50) fL RDW Coeff of Elli 16.1 H (11.5-14.5) % Plt Count 140 (140-350) 10*3/uL MPV 9.0 (7.4-12.2) FL Immature Gran % (Auto) 0.2 (0-5) % Neut % (Auto) 73.7 (50-80) % Lymph % (Auto) 16.9 (10-50) % Benzie % (Auto) 6.7 (5-15) % Eos % (Auto) 2.0 (0-8) % Baso % (Auto) 0.5 (0-1) % Immature Gran # (Auto) 0.01 10*3/UL Neut # (Auto) 4.48 10*3/UL Lymph # (Auto) 1.03 10*3/uL Benzie # (Auto) 0.41 (0.3-0.8) 10*3/UL Eos # (Auto) 0.12 10*3/UL Baso # (Auto) 0.03 10*3/UL WBC Morphology Comment Normal morphology (NORM) Plt Morphology Comment Normal morphology (NORM) RBC Morph Comment Normal morphology (NORM) PT 12.3 H (9.7-11.4) secs INR 1.19 (0.00-5.90) N/A D-Dimer 0.29 (0.00-0.59) mg/L VBG pH 7.30 L (7.32-7.42) VBG pCO2 83 H (45-55) mmHg VBG HCO3 41 H (22-26) mmol/L VBG Base Excess 15 H (-2-2) MMOL/L Sodium 142 (135-145) meq/L Potassium 5.1 (3.8-5.2) meq/L Chloride 95 L (98-112) meq/L Carbon Dioxide 39 H (23-33) meq/L Anion Gap 8 (5-20) BUN 33 H (7-22) mg/dL Creatinine 1.1 (0.50-1.20) mg/dL Estimated GFR (>60 ml/min/1.73m(2)) BUN/Creatinine Ratio 30.00 H (6-20) Glucose 100 (78-110) mg/dL Calculated Osmolality 300.0 H (267-292) mOsm/kg Calcium 9.7 (8.7-10.7) mg/dL Total Bilirubin 0.5 (0.3-1.2) mg/dL AST 21 (8-39) IU/L ALT 26 (9-52) IU/L Alkaline Phosphatase 47 (38-126) IU/L CK-MB (CK-2) 0.95 (0.00-5.00) NG/ML Troponin I 0.047 H (< 0.040) ng/mL NT-Pro-B Natriuret Pep 4410 H (0-450) PG/ML Total Protein 5.6 L (6.1-8.0) g/dL Albumin 3.4 L (3.5-4.8) g/dL Globulin 2.2 L (2.50-4.10) g/dL Albumin/Globulin Ratio 1.50 (1.3-2.0) mg/g Blood Type B POSITIVE Antibody Screen Negative Crossmatch See Detail Discharge instruction diet regular Activity as tolerated Medications Active Medications Albuterol Sulfate (Proair Hfa Inhaler) 2 puff INH Q4H PRN PRN Reason: Shortness of Breath Albuterol/Ipratropium (Duoneb Neb Soln) 3 ml NEB Q4H PRN PRN Reason: Wheezing Allopurinol (Zyloprim) 200 mg PO BEDTIME [facility] Last Admin: 11/21/16 02:14 Dose: Not Given Amlodipine Besylate (Norvasc) 10 mg PO DAILY [facility] Last Admin: 11/21/16 08:59 Dose: 10 mg Cephalexin (Keflex) 500 mg PO BEDTIME [facility] Last Admin: 11/21/16 02:15 Dose: Not Given Furosemide (Lasix) 40 mg PO BID@0700,1300 [facility] Last Admin: 11/21/16 07:01 Dose: 40 mg Sodium Chloride (Normal Saline 0.9%) 25 mls @ 200 mls/hr IV .Post Infusion PRN PRN Reason: No Primary IV for Flush ONLY Isosorbide Mononitrate (Imdur) 30 mg PO TID [facility] Last Admin: 11/21/16 08:57 Dose: 30 mg Lidocaine HCl (Lidocaine Buffered Inj) 0.5 ml SUBD ONCE PRN PRN Reason: IV Starts (Multivitamin With Minerals [Icaps Plus ] 1 Tab) 1 tab PO DAILY [facility] Pantoprazole Sodium (Protonix) 40 mg PO AC BK [facility] Last Admin: 11/21/16 07:01 Dose: 40 mg Potassium Chloride (Klor-Con) 20 meq PO BID MEALS [facility] Last Admin: 11/21/16 07:01 Dose: 20 meq Fluticasone/Salmeterol (Advair Diskus 500/50 Inhaler) 1 puff INH BID [facility] Last Admin: 11/21/16 07:30 Dose: 1 puff Sodium Chloride (Saline Flush) 5 - 20 ml IVP BID PRN PRN Reason: Flush Last Admin: 11/21/16 01:33 Dose: 10 ml Follow-up per Dr. Cervantes postdischarge. Exam - Vitals Vital Signs: Vital Signs Temperature 98.0 F Temperature Source Temporal Artery Scan Pulse Rate [Telemetry] 44 Pulse Rate [Apical] 46 Pulse Rate [Pulse Oximeter] 67 Pulse Rate 48 Respiratory Rate 22 Blood Pressure [Left Arm] 152/68 Blood Pressure 154/60 Pulse Ox 93 Oxygen Flow Rate 20 Oxygen Delivery Method Vapotherm Height 5 ft 5 in Weight 197 lb 8 oz Patient Problems - Patient Problem List (1) Anemia Status: Acute (2) Elevated brain natriuretic peptide (BNP) level Status: Acute (3) Hypertension Status: Acute (4) Bradycardia Status: Acute (5) Acute and chronic respiratory failure Status: Acute (6) History of atrial fibrillation Status: Acute
[2016-11-21 09:59] LABS: BASOPHILS # (AUTO) 0.02 10*3/UL; BASOPHILS % (AUTO) 0.4 % (0-1); EOSINOPHILS # (AUTO) 0.11 10*3/UL; EOSINOPHILS % (AUTO) 2.2 % (0-8); HEMATOCRIT 31.1 % (37.0-47.0); HEMOGLOBIN 9.4 g/dL (12.0-16.0); LYMPHOCYTES # (AUTO) 1.01 10*3/uL; MEAN CORPUSCULAR HEMOGLOBIN 27.2 PG (27-31); MEAN CORPUSCULAR HGB CONC 30.2 g/dL (33-37); MEAN CORPUSCULAR VOLUME 90.1 FL (81-99); MEAN PLATELET VOLUME 8.7 FL (7.4-12.2); MONOCYTES # (AUTO) 0.47 10*3/UL (0.3-0.8); MONOCYTES % (AUTO) 9.4 % (5-15); NEUTROPHILS # (AUTO) 3.39 10*3/UL; NEUTROPHILS % (AUTO) 67.6 % (50-80); RED BLOOD COUNT 3.45 10^6/uL (4.20-5.40)
[2016-11-21 10:05] LABS: PLATELET MORPHOLOGY COMMENT NORMAL MORPHOLOGY (NORM); RBC MORPHOLOGY COMMENT NORMAL MORPHOLOGY (NORM); WBC MORPHOLOGY COMMENT NORMAL MORPHOLOGY (NORM)
[2016-11-21 10:06] LABS: VENOUS PH 7.46 (7.32-7.42)
[2016-11-21 10:31] LABS: BLOOD UREA NITROGEN 29 mg/dL (7-22)
[2016-11-21 10:32] LABS: CALCIUM 9.2 mg/dL (8.7-10.7)
== END 2016-11-21 10:57 | disposition short-term general hospital (02) | DRG 308 ==
LOC: ER 20:35 → MED/SURG 22:19
PROVIDERS: ADMIT Internal Medicine; ATTEND Internal Medicine
PROC: 30233N1 Transfusion of Nonautologous Red Blood Cells into Peripheral Vein, Percutaneous Approach (ICD-10-PCS; principal; 2016-11-21)
DX: I50.9 Heart failure, unspecified (principal); R00.1 Bradycardia, unspecified; J96.20 Acute and chronic respiratory failure, unspecified whether with hypoxia or hypercapnia; R09.02 Hypoxemia; R41.0 Disorientation, unspecified; I48.91 Unspecified atrial fibrillation; D64.9 Anemia, unspecified; I10 Essential (primary) hypertension; G47.30 Sleep apnea, unspecified; G60.9 Hereditary and idiopathic neuropathy, unspecified; K21.9 Gastro-esophageal reflux disease without esophagitis; J44.9 Chronic obstructive pulmonary disease, unspecified
CPT/HCPCS: 36415; 36430; 71020; 80048; 80053; 82553; 82803; 83880; 84484; 85025; 85379; 85610; 86850; 86900; 86901; 86922; 87641; 93005; 93010; 94640; 94660; 94761; 99284; J1940; J7030; J7040; J7620; P9016

== ENCOUNTER 2016-12-02 22:22 | Inpatient (IN) | payer OTHER ==
[2016-12-02] MEDS ORDERED: NORMAL SALINE 10 ML SYRINGE FLUSH IVP PRN (22:38)
[2016-12-02] MEDS ORDERED: Sodium Chloride 0.9% 1,000 ML PRIMARY IV ONE (22:38)
[2016-12-02 22:52] LABS: BASOPHILS # (AUTO) 0.09 10*3/UL; BASOPHILS % (AUTO) 0.9 % (0-1); EOSINOPHILS # (AUTO) 0.29 10*3/UL; EOSINOPHILS % (AUTO) 2.8 % (0-8); HEMATOCRIT 37.2 % (37.0-47.0); HEMOGLOBIN 11.1 g/dL (12.0-16.0); MEAN CORPUSCULAR HEMOGLOBIN 27.7 PG (27-31); MEAN CORPUSCULAR HGB CONC 29.8 g/dL (33-37); MEAN CORPUSCULAR VOLUME 92.8 FL (81-99); MEAN PLATELET VOLUME 8.6 FL (7.4-12.2); MONOCYTES % (AUTO) 10.5 % (5-15); NEUTROPHILS # (AUTO) 5.73 10*3/UL; NEUTROPHILS % (AUTO) 54.6 % (50-80); PLATELET MORPHOLOGY COMMENT NORMAL MORPHOLOGY (NORM); RBC MORPHOLOGY COMMENT NORMAL MORPHOLOGY (NORM); RED BLOOD COUNT 4.01 10^6/uL (4.20-5.40); WBC MORPHOLOGY COMMENT NORMAL MORPHOLOGY (NORM)
[2016-12-02 23:00] LABS: BUN/CREATININE RATIO 18.88 (6-20); CALCIUM 9.6 mg/dL (8.7-10.7); SERUM ALBUMIN 3.5 g/dL (3.5-4.8)
[2016-12-02 23:51] LABS: ABG BASE EXCESS 0 MMOL/L (-2-2); ABG OXYGEN SATURATION 0 % (90-100); ABG PCO2 > 130 MMHG (34-38); ABG PH 7.027 (7.35-7.45); ABG PO2 0 MMHG (65-75)
[2016-12-02 23:52] LABS: ALLEN TEST Yes
[2016-12-02 23:53] LABS: COLLECTION SITE R Radial
[2016-12-03 00:38] LABS: ABG PCO2 121 MMHG (34-38); ABG PH 7.15 (7.35-7.45); ABG PO2 57 MMHG (65-75); COLLECTION SITE R Radial
[2016-12-03 00:39] LABS: ABG BASE EXCESS 14 MMOL/L (-2-2); ABG OXYGEN SATURATION 77 % (90-100); ALLEN TEST Yes
[2016-12-03 00:44] VITALS: TEMP 96.8
[2016-12-03 00:52] VITALS: RESP 24
[2016-12-03] MEDS ORDERED: FUROSEMIDE 10 MG/1 ML - 4 ML IVP ONE (01:28)
[2016-12-03 01:49] LABS: ABG BASE EXCESS 11 MMOL/L (-2-2); ABG OXYGEN SATURATION 81 % (90-100); ABG PCO2 95 MMHG (34-38); ABG PH 7.22 (7.35-7.45); ABG PO2 58 MMHG (65-75); ALLEN TEST Yes; COLLECTION SITE R Radial
--- NOTE | 2016-12-03 02:00 | PDOC ---
Dyspnea HPI - General Chief Complaint: Dyspnea Stated Complaint: DYSPNEA Date Seen by Provider: 12/02/16 Time Seen by Provider: 22:20 Source: POSITIVE: EMS, Other (Son and daughter) Exam Limitations: POSITIVE: Clinical condition Treatment Prior to Arrival: REPORTS: Oxygen Nurse's Notes Reviewed & Considered: Yes EMS Report Reviewed & Considered: Verbal - History of Present Illness Initial Comments: The patient is an 81 year old female. She is brought to the emergency room by ambulance. She lives with her daughter, who accompanies the patient to the emergency room, and the daughter is the one who called the ambulance. Patient was admitted to this facility recently with congestive heart failure. She was transferred from here to [facility] with intractable congestive heart failure. She had a pacemaker placed while at [facility]. Patient continued hypoxia and hypercarbia at [facility] and continued to have refractory congestive heart failure. She was intubated at [facility] and was extubated 2 or 3 days ago. She has chest return home from [facility]. This evening the patient again became dyspneic and then obtunded. called the ambulance who brought the patient here. Patient is on oxygen at home, 2-4 L/m. She has a history of sleep apnea and uses a CPAP at night. Former smoker. History of COPD, asthma, congestive heart failure, coronary artery disease and hypertension. On 20 November the patient requested DO NOT RESUSCITATE status. The daughter states that following her intubation at [facility], the patient affirm that she did not want to be intubated again. Body Location Affected: REPORTS: Chest (Severe dyspnea and hypoxia) Timing: REPORTS: Gradual Duration: 4-6 hours Severity: Severe Quality: REPORTS: Other (Daughter states that the patient has not been any pain today. Patient is obtunded and is not able to answer questions.) Initiating Event: DENIES: Upper Respiratory Illness, Out of Medications, Sports , Exercise, Aspiration, Choking, Allergy, Exposure - Smoke, Exposure - Mold, Exposure - Other Allergen Associated Symptoms: DENIES: Fever, Chills, Sweating, Chest Pain, Chest Discomfort, Left Chest, Right Chest, Central Chest, Chest Heaviness, Chest Tightness, Painful Breathing, Radiation to Back, Radiation to Jaw, Radiation to Arm, Bloody Cough, Productive Cough, Heart Racing, Leg Pain, Calf Pain, Ankle Swelling, Leg Swelling, Dizziness, Light-Headedness, Anxiety, Tingling - Hands, Tingling - Face, Muscle Spasms - Hands, Muscle Spasms - Feet Similar Symptoms Previously: Yes Recently seen/treated/hospitalized: Yes Any Prior Injuries Related to Current Complaint?: No - Patient Home Medications Home Medications: Home Medications Albuterol/Ipratrop Neb Soln [Duoneb Neb Soln] 3 ml INH Q4H PRN PRN 04/03/14 Calcium Carbonate/Vitamin D3 [Calcium 600 + Vit D 200 Tablet] 1 tab PO BID 04/03 Polyethylene Glycol 3350 [Miralax] 17 gm PO PRN PRN 04/03/14 Acetaminophen [Tylenol Extra Strength] 1 tab PO QD PRN #30 tab 10/05/15 Albuterol Sulfate [Ventolin Hfa] 90 mg INH Q4H PRN PRN #2 inhaler 10/05/15 Cranberry Extract [Cranberry] 1 cap PO BID #60 cap 10/05/15 Miconazole Nitrate 1 gm MC BID PRN #1 10/05/15 Nystatin 1 each MC TID PRN #30 bottle 10/05/15 Witch Amy [Preparation H Totables] 1 each TOPICAL QD PRN #48 10/05/15 Pantoprazole Sodium [Protonix] 1 tab PO QD #90 tab 05/18/16 Nitroglycerin SL Tab [Nitrostat Sl Tab] 1 tab PO PRN PRN #9 tab 05/23/16 Cephalexin [Keflex] 1 cap PO QD #30 cap 05/25/16 Carvedilol 1 tab PO BID #60 tab 06/08/16 Fluticasone/Salmeterol [Advair 500-50 Diskus] 1 puff INH BID #2 inhaler Allopurinol 2 tab PO QD #60 tab 09/18/16 Isosorbide Mononitrate [Isosorbide Mononitrate Er] 1 tab PO TID #90 tab Multivitamin with Minerals [Icaps Plus] 1 tab PO QD #30 tab 09/21/16 Potassium Chloride 1 tab PO TID #90 tab 09/26/16 Amlodipine Besylate 1 tab PO QD #90 tab 10/23/16 Furosemide [Lasix] 0.5 tab-cap PO BID #45 tab-cap 10/27/16 Rivaroxaban [Xarelto] 1 tab PO QD #30 tab 10/31/16 - Patient Allergies Allergies/Adverse Reactions: Allergies Allergy/AdvReac Type Severity Reaction Status Date / Time latex [Latex] Allergy Severe RASH Verified 12/02/16 23:54 linezolid [From Zyvox] Allergy Severe leukopenia Verified 12/02/16 23:54 morphine Allergy Severe ITCHING Verified 12/02/16 23:54 Penicillins Allergy Severe RASH Verified 12/02/16 23:54 vancomycin Allergy Severe FLUSHING Verified 12/02/16 23:54 bacitracin Allergy Intermediate rash Verified 12/02/16 23:54 [From Neosporin ([id number])] bacitracin zinc Allergy Intermediate rash Verified 12/02/16 23:54 [From Neosporin ([id number])] diphenhydramine HCl Allergy Intermediate RASH Verified 12/02/16 23:54 [From Benadryl] neomycin sulfate Allergy Intermediate rash Verified 12/02/16 23:54 [From Neosporin ([id number])] polymyxin B Allergy Intermediate rash Verified 12/02/16 23:54 [From Neosporin ([id number])] adhesive tape [Adhesive Tape] AdvReac Intermediate RASH Verified 12/02/16 23:54 Past Medical History - heen HEENT History: Cataracts, Hard of Hearing, Dentures/Partials, Other (please comment) Additional HEENT History: wears glasses for reading Cardiovascular History: Hypertension, CHF, CAD, Arrhythmia, DVTs Additional Cardiovasular History: 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 Chronic A-fib. Pulmonary hypertension. Pace maker placed 11/27/16 Respiratory History: Asthma, COPD, Sleep Apnea, Home Oxygen Use, Home CPAP Use Additional Respiratory History: Wears 2-4L at home. Pt intubated 11/27/16 for respiratory distress Gastrointestinal History: GERD, Other (please comment) Additional Gastrointestinal History: large hernia RLQ, Robert's esophagus, abcessed appe Genitourinary History: Recurrent UTI, Renal Disease, Kidney Stones, Incontinence , Renal Failure Endocrine History: Denies History Musculoskeletal History: Arthritis, Osteoporosis, Gout, Muscle Weakness, Limited ROM, Joint Pain, Physical Limitation Prosthesis or Implant: Yes (left TKA) Additional Musculoskeletal History: L) TKA R)Ankle Fx x 2. Pt only able to stand and pivot, not able to ambulate Neurological History: Encephalitis, Other (please comment) Additional Neurological History: Previous Neck Surgeries, fusion of cervical region. 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 Pace maker placed. Anesthesia Reactions: No Malignant Hyperthermia: No Significant Family History: Asthma, Heart disease, Cancer, Diabetes, Hypertension Past Medical History Reviewed: Reviewed - No Changes ROS - Limitations ROS Limitations: Clinical Condition (Patient is up 100 and not able to answer questions. Past medical history and review of systems and history of present illness obtained from the patient's daughter and son.) Constitution: REPORTS: Weakness Cardiovascular: REPORTS: Other (Congestive heart failure) Respiratory: REPORTS: Shortness Of Breath Neurological: REPORTS: Denies Neuro Symptoms Gastrointestinal: REPORTS: Denies GI Symptoms Endocrine: REPORTS: Denies Symptoms Musculoskeletal: REPORTS: Denies MS Symptoms Genitourinary: REPORTS: Denies Symptoms Eyes: REPORTS: Denies Symptoms ENT: REPORTS: Denies Symptoms Skin: REPORTS: Denies Skin Symptoms Lympathic: REPORTS: Denies Lympathic Symptoms Immunologic: POSITIVE: Denies Symptoms Psychiatric: POSITIVE: Denies Psych Symptoms Dyspnea Physical Exam - General Appearance General Appearance: REPORTS: Obtunded - HEENT HEENT: POSITIVE: Head Inspection Nml, Eyes Inspection Nml, Ears Inspection Nml, Nose Inspection Nml, Oral/Dental Inspect. Nml, Pharynx Inspect. Nml, PERRL, EOMI - Neck Neck: REPORTS: JVD Present - Respiratory Respiratory: REPORTS: No Pleuritic Chest Pain, Rales, Decreased Air Movement. DENIES: Speaks Full Sentences - Cardiovascular Cardiovascular: REPORTS: Regular Rate and Rhythm (Pacer rate at 72/m), S3 Gallop. DENIES: Heart Sounds Normal (S3), Equal Pulses, Strong Pulses, No Murmur, No Gallop, No Friction Rub, No JVD Peripheral Pulses: Radial (R): 2+, Radial (L): 2+ - Abdomen Abdomen: Soft: (All Quadrants), Normal Bowel Sounds: (All Quadrants), Denies Tenderness: (All Quadrants), No Splenomegaly: (All Quadrants), No Hepatomegaly: (All Quadrants), No Guarding: (All Quadrants), No Rebound: (All Quadrants), No Palpable Pulse: (All Quadrants), No Palpabale Mass: (All Quadrants), No Distention: (All Quadrants), No Rigidity: (All Quadrants) - Skin Skin: REPORTS: Intact, Normal For Race, Warm, Dry, No Rash - Extremities Extremity: Non-Tender: (All Extremities), Normal ROM: (All Extremities), Normal Inspection: (All Extremities) - Neurological / Psychological Neurological: POSITIVE: Other (Patient obtunded) Dyspnea Progress - Results Reviewed by me Xrays/CTs/US Reviewed by me: Yes Discussed with Radiologist: Yes Radiology Findings: Chest x-ray, portable, shows pulmonary edema. CTA chest done because of markedly elevated d-dimer shows no pulmonary emboli; confirms pulmonary edema. Lab Results Reviewed: Yes Lab Results:: Laboratory Results 12/02/16 12/02/16 12/03/16 Range/Units 22:14 22:38 00:05 WBC 10.48 (4.8-10.8) 10^3/uL RBC 4.01 L (4.20-5.40) 10^6/uL Hgb 11.1 L (12.0-16.0) g/dL Hct 37.2 (37.0-47.0) % MCV 92.8 (81-99) FL MCH 27.7 (27-31) PG MCHC 29.8 L (33-37) g/dL RDW Std Deviation 53.5 H (39-50) fL RDW Coeff of Elli 16.3 H (11.5-14.5) % Plt Count 214 (140-350) 10*3/uL MPV 8.6 (7.4-12.2) FL Immature Gran % (Auto) 0.7 (0-5) % Neut % (Auto) 54.6 (50-80) % Lymph % (Auto) 30.5 (10-50) % [place] % (Auto) 10.5 (5-15) % Eos % (Auto) 2.8 (0-8) % Baso % (Auto) 0.9 (0-1) % Immature Gran # (Auto) 0.07 10*3/UL Neut # (Auto) 5.73 10*3/UL Lymph # (Auto) 3.20 10*3/uL [place] # (Auto) 1.10 H (0.3-0.8) 10*3/UL Eos # (Auto) 0.29 10*3/UL Baso # (Auto) 0.09 10*3/UL WBC Morphology Comment Normal morphology (NORM) Plt Morphology Comment Normal morphology (NORM) RBC Morph Comment Normal morphology (NORM) PT 10.8 (9.7-11.4) secs INR 1.05 (0.00-5.90) N/A D-Dimer 6.89 H (0.00-0.59) mg/L ABG pH 7.027 L 7.15 L (7.35-7.45) ABG pCO2 > 130 H 121 H (34-38) MMHG ABG pO2 0 L 57 L (65-75) MMHG ABG HCO3 0 L 42 H (22-26) ABG Total CO2 0 L 46 H (23-27) MMOL/L ABG O2 Saturation 0 L 77 L (90-100) % ABG Base Excess 0 14 H (-2-2) MMOL/L Lanre Test Yes Yes FiO2 100 70 Sodium 142 (135-145) meq/L Potassium 5.0 (3.8-5.2) meq/L Chloride 93 L (98-112) meq/L Carbon Dioxide 40 H (23-33) meq/L Anion Gap 9 (5-20) BUN 17 (7-22) mg/dL Creatinine 0.9 (0.50-1.20) mg/dL Estimated GFR (>60 ml/min/1.73m(2)) BUN/Creatinine Ratio 18.88 (6-20) Glucose 181 H (78-110) mg/dL Calculated Osmolality 300.0 H (267-292) mOsm/kg Calcium 9.6 (8.7-10.7) mg/dL Magnesium 1.5 L (1.6-2.4) mg/dL Total Bilirubin 0.8 (0.3-1.2) mg/dL AST 28 (8-39) IU/L ALT 30 (9-52) IU/L Alkaline Phosphatase 61 (38-126) IU/L Troponin I 0.043 H (< 0.040) ng/mL NT-Pro-B Natriuret Pep 7270 H (0-450) PG/ML Total Protein 6.1 (6.1-8.0) g/dL Albumin 3.5 (3.5-4.8) g/dL Globulin 2.6 (2.50-4.10) g/dL Albumin/Globulin Ratio 1.30 (1.3-2.0) mg/g 12/03/16 Range/Units 01:28 WBC (4.8-10.8) 10^3/uL RBC (4.20-5.40) 10^6/uL Hgb (12.0-16.0) g/dL Hct (37.0-47.0) % MCV (81-99) FL MCH (27-31) PG MCHC (33-37) g/dL RDW Std Deviation (39-50) fL RDW Coeff of Elli (11.5-14.5) % Plt Count (140-350) 10*3/uL MPV (7.4-12.2) FL Immature Gran % (Auto) (0-5) % Neut % (Auto) (50-80) % Lymph % (Auto) (10-50) % [place] % (Auto) (5-15) % Eos % (Auto) (0-8) % Baso % (Auto) (0-1) % Immature Gran # (Auto) 10*3/UL Neut # (Auto) 10*3/UL Lymph # (Auto) 10*3/uL [place] # (Auto) (0.3-0.8) 10*3/UL Eos # (Auto) 10*3/UL Baso # (Auto) 10*3/UL WBC Morphology Comment (NORM) Plt Morphology Comment (NORM) RBC Morph Comment (NORM) PT (9.7-11.4) secs INR (0.00-5.90) N/A D-Dimer (0.00-0.59) mg/L ABG pH 7.22 L (7.35-7.45) ABG pCO2 95 H (34-38) MMHG ABG pO2 58 L (65-75) MMHG ABG HCO3 39 H (22-26) ABG Total CO2 42 H (23-27) MMOL/L ABG O2 Saturation 81 L (90-100) % ABG Base Excess 11 H (-2-2) MMOL/L Lanre Test Yes FiO2 50 Sodium (135-145) meq/L Potassium (3.8-5.2) meq/L Chloride (98-112) meq/L Carbon Dioxide (23-33) meq/L Anion Gap (5-20) BUN (7-22) mg/dL Creatinine (0.50-1.20) mg/dL Estimated GFR (>60 ml/min/1.73m(2)) BUN/Creatinine Ratio (6-20) Glucose (78-110) mg/dL Calculated Osmolality (267-292) mOsm/kg Calcium (8.7-10.7) mg/dL Magnesium (1.6-2.4) mg/dL Total Bilirubin (0.3-1.2) mg/dL AST (8-39) IU/L ALT (9-52) IU/L Alkaline Phosphatase (38-126) IU/L Troponin I (< 0.040) ng/mL NT-Pro-B Natriuret Pep (0-450) PG/ML Total Protein (6.1-8.0) g/dL Albumin (3.5-4.8) g/dL Globulin (2.50-4.10) g/dL Albumin/Globulin Ratio (1.3-2.0) mg/g EKG Interpreted/Reviewed By Me:: Yes (pacer rhythm) EKG Interpretation:: POSITIVE: Abnormal EKG (Pacer rhythm) - Patient's Progress Pain Medication Addressed: POSITIVE: Not Applicable School/Work Release Addressed: POSITIVE: Not Applicable Re-Examine Time: 22:45 Re-Examine Comment: Patient prominently hypoxic and obtunded. Discussed at length intubation with the patient's daughter and son. Patient has on record a DO NOT RESUSCITATE status dated 20 November. Daughter and son state that the patient told them and their physicians at [facility] that she did not want to be intubated again. Re-Examine Time:: 23:50 Re-Examine Comment: Initial blood gas done 2237 shows a pH of 7.027 and a PCO2 of 1:30 with a PO2 of 58 on FiO2 of 100%. Patient started on BiPAP, 16/ with respiratory of 18 on 100% FiO2. At 2334 pH was 7.153 and PCO2 120.9. His thought that the patient's obtundent nation is likely due to hypercarbia. On CPAP the patient maintained oxygen saturation at her 85-90. In view of d-dimer of 6.89 CTA of chest was ordered. Re-examine Time: 01:00 Re-Examine Comment: CTA of chest shows no pulmonary emboli. Prominent congestive heart failure and pulmonary edema. Repeat arterial blood gases show pH of 7.2 to with a PCO2 95.1 and a PO2 of 58. At this point the patient will occasionally respond to verbal stimuli by opening her eyes. She has made some attempt to verbalize. Patient given Lasix IV with Keys. Critical condition, likely terminal, discussed with the patient's son and family. Status: POSITIVE: Improved, Re-Examined Air Movement: POSITIVE: Fair (On BiPAP) - Consult Consult (If Yes, Name of Consulting MD & Time Called): Yes (Dr. Padgett, hospitalist, [id number]) Consulting MD will see pt:: POSITIVE: [facility] [place] Admit Counseled: POSITIVE: Family, RE: Lab Results, RE: Radiology Results, RE: DX, RE : Need for F/U Patient Care Time - Estimated PCT Patient Care Time (In Minutes): 75 Vital Signs - Recent Vital Signs Vital Signs: Vital Signs (Last 8 hours) Temp Pulse Pulse Resp BP Pulse Ox 12/02/16 23:30 74 24 138/77 88 12/02/16 23:23 74 26 H 134/68 87 12/02/16 23:18 75 27 H 137/68 89 12/02/16 23:13 79 26 H 124/76 87 12/02/16 23:06 77 26 H 102/79 82 12/02/16 22:33 75 26 H 129/65 87 12/02/16 22:25 96.8 F 74 38 H 117/62 73 12/02/16 22:24 74 - VS Reviewed Vital Signs Reviewed: Yes Critical Care Note - Critical Care Note Total Time (mins): 75 Critical Care: Recurrent Physical Assessment Required, Respiratory Failure, Life Threatening Scenario, Interpretation of Labs - Management Adjusted Based on Results, Interpretation Imaging Studies - Management Adjusted Based on Results History Source: Family, Old records Discussion with Family: Son and daughter Discharge Clinical Impression: Pulmonary edema, Respiratory failure, Stupor, Hypercapnia, Hypoxia, Do not resuscitate status Discharge Disposition: Admit to Inpatient Condition: Fair Date Decision to Admit to Inpatient: 12/03/16 Time Decision to Admit to Inpatient: 01:00
[2016-12-03] MEDS ORDERED: DIAZEPAM 10 MG/2 ML (5 MG/1 ML) CARPUJECT IVP ONE ×3 (03:16→03:22)
[2016-12-03] MEDS ORDERED: MORPHINE SULFATE 10 MG/1 ML IVP ONE ×2 (03:16→03:22)
[2016-12-03] MEDS ORDERED: MORPHINE SULFATE 10 MG/1 ML IVP PRN ×3 (03:16→03:22)
[2016-12-03] MEDS ORDERED: LIDOCAINE W/ SODIUM BICARB 0.5 ML SYR SUBD PRN (03:20)
[2016-12-03] MEDS ORDERED: NORMAL SALINE 10 ML SYRINGE FLUSH IVP PRN ×2 (03:20)
--- NOTE | 2016-12-03 03:22 | PDOC ---
History and Physical - History of Present Illness Date and Time of Service: 12/03/2016, 322 Chief Complaint: Respiratory failure History of Present Illness: This is an 81-year-old female who has significant right right heart failure, pulmonary hypertension, recent admission to [facility] with sick sinus syndrome and atrial fibrillation that required pacemaker placement, acute respiratory failure that required intubation. She apparently made the decision to not have any further resuscitation or intubation after she was extubated. She's been home for a couple of weeks, but her daughter noticed that her oxygenation wasn't holding very well over the last 24 hours. She tried to adjust the oxygen by increasing it and even went as high as about 8 L. She tried to maintain the oxygen saturations between 88 and 91% due to her COPD, and even tried CPAP, but the oxygenation seemed to get worse. Today, she became much more ashen and did not appear to be breathing very well and so the patient's daughter brought her into the emergency room by calling 911. In the emergency room, the patient was placed on BiPAP, has intermittently had short- term verbal responses, but mostly unresponsive and has been responsive to pain only. Her CO2 was in the 130s by ABG and her pH was as low as 7.0. Despite aggressive BiPAP therapy in the emergency room, the pH did not improve to much greater than 7.2, and the CO2 remains in the 95-98 range. The patient was slightly loosened, and stated that she wanted to pass on and go back to have an. CT scans and chest x-rays were done that showed significant fluid overload with bilateral pleural effusions that are quite large. She may have a pneumonia on the right side as well. Lasix was administered but to no avail. She is really had minimal urine output. Based on the above, I discussed with the family that at this time, care is futile, and that without intubation and even with intubation, the patient is likely to and that picture seems most consistent with end-stage cor pulmonale and right heart failure. I do not think there is any right ventricular kick at all. I discussed this, showed the films in depth, reviewed them with the patient's son and daughter, Ming, and talked to their sister Yolanda in [facility], and after some lengthy discussion and questions being answered, they have elected to withdraw care with the understanding that the patient will regardless of any medical therapy or invasive therapy that we can provide. Past Medical History Medical History: 1. History of atrial fibrillation currently on Xarelto. 2. 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 3. Hypertension. 4. Coronary artery disease status post the stenting to LAD by 2 in 2009. 5. Sleep apnea. 6. GERD. 7. Osteoarthritis. 8. Idiopathic peripheral neuropathy. 9. Hearing loss. 10. History of gout. 11. Pulmonary hypertension, echocardiogram done in 2013 showed LVH with the ejection fraction 65% pulmonary hypertension PA pressure was 65, aortic sclerosis with no stenosis. 12. UTI in 2013. 13. Sick sinus syndrome status post pacemaker placement a couple of weeks ago. Surgical History: 1. Cholecystectomy. 2. Appendectomy. 3. Hysterectomy with bilateral salpingo-oophorectomy secondary to cervical cancer. 4. Left total knee arthroplasty in 2007. 5. C4 6 fusion and 90. 6. Pacemaker placement Pertinent Family History: I cannot obtain this information from the patient due to her obtunded mental status. Past Social History: Used to smoke, does not drink alcohol, and no drugs. Lives with her daughter and she is the main caregiver. Tobacco Use: Former Smoker Substance Use Type: None Alcohol Use: None Medication / Allergies Home Medications: Home Medications Medication Instructions Recorded Confirmed Type Albuterol/Ipratrop Neb Soln 3 ml INH Q4H PRN PRN 04/03/14 12/03/16 History [Duoneb Neb Soln] Calcium Carbonate/Vitamin D3 1 tab PO BID 04/03/14 12/03/16 History [Calcium 600 + Vit D 200 Tablet] Polyethylene Glycol 3350 [Miralax] 17 gm PO PRN PRN 04/03/14 12/03/16 History Acetaminophen [Tylenol Extra 1 tab PO QD PRN #30 tab 10/05/15 12/03/16 Clinic Strength] Albuterol Sulfate [Ventolin Hfa] 90 mg INH Q4H PRN PRN #2 inhaler 10/05/1512/03 Clinic Cranberry Extract [Cranberry] 1 cap PO BID #60 cap 10/05/15 12/03/16 Clinic Miconazole Nitrate 1 gm MC BID PRN #1 10/05/15 12/03/16 Clinic Nystatin 1 each MC TID PRN #30 bottle 10/05/15 12/03/16 Clinic Erlin Reyes [Preparation H 1 each TOPICAL QD PRN #48 10/05/15 12/03/16 Clinic Totables] Pantoprazole Sodium [Protonix] 1 tab PO QD #90 tab 05/18/16 12/03/16 Clinic Nitroglycerin SL Tab [Nitrostat 1 tab PO PRN PRN #9 tab 05/23/16 12/03/16 Clinic Sl Tab] Cephalexin [Keflex] 1 cap PO QD #30 cap 05/25/16 12/03/16 Clinic Carvedilol 1 tab PO BID #60 tab 06/08/16 12/03/16 Clinic Fluticasone/Salmeterol [Advair 1 puff INH BID #2 inhaler 08/28/16 12/03/16 Clinic 500-50 Diskus] Allopurinol 2 tab PO QD #60 tab 09/18/16 12/03/16 Clinic Multivitamin with Minerals [Icaps 1 tab PO QD #30 tab 09/21/16 12/03/16 Clinic Plus] Potassium Chloride 1 tab PO TID #90 tab 09/26/16 12/03/16 Clinic Amlodipine Besylate 1 tab PO QD #90 tab 10/23/16 12/03/16 Clinic Furosemide [Lasix] 0.5 tab-cap PO BID #45 tab-cap 10/27/16 12/03/16 Clinic Allergies/Adverse Reactions: Allergies Allergy/AdvReac Type Severity Reaction Status Date / Time latex [Latex] Allergy Severe RASH Verified 12/02/16 23:54 linezolid [From Zyvox] Allergy Severe leukopenia Verified 12/02/16 23:54 morphine Allergy Severe ITCHING Verified 12/02/16 23:54 Penicillins Allergy Severe RASH Verified 12/02/16 23:54 vancomycin Allergy Severe FLUSHING Verified 12/02/16 23:54 bacitracin Allergy Intermediate rash Verified 12/02/16 23:54 [From Neosporin ([id number])] bacitracin zinc Allergy Intermediate rash Verified 12/02/16 23:54 [From Neosporin ([id number])] diphenhydramine HCl Allergy Intermediate RASH Verified 12/02/16 23:54 [From Benadryl] neomycin sulfate Allergy Intermediate rash Verified 12/02/16 23:54 [From Neosporin ([id number])] polymyxin B Allergy Intermediate rash Verified 12/02/16 23:54 [From Neosporin ([id number])] adhesive tape [Adhesive Tape] AdvReac Intermediate RASH Verified 12/02/16 23:54 Review of Systems - Review of Systems ROS Unobtainable: Due to Mental Status (I cannot obtain a review of systems due to mental status.) Exam - Vitals Vital Signs: Vital Signs Height 5 ft 5 in Weight 207 lb Vital Signs - Last Taken Temperature 96.8 F 12/02/16 22:25 Pulse Rate 74 12/02/16 23:30 Respiratory Rate 24 12/02/16 23:30 Blood Pressure 138/77 12/02/16 23:30 Pulse Ox 88 12/02/16 23:30 This is on BiPAP, - General General Appearance: POSITIVE: Severe Distress - Head Head Exam: POSITIVE: Normal Inspection, Normocephalic, Atraumatic - Eye Eye Exam: POSITIVE: No Scleral Icterus - ENT ENT Exam: POSITIVE: Mucous Membranes Moist - Neck Neck Exam: POSITIVE: Normal Inspection, No Tenderness, No Thyromegaly Additional Neck Exam Details: This some bruising on the patient's neck on the right side consistent with probable prior placement of a central line. - Respiratory Respiratory Exam: POSITIVE: Decreased Breath Sounds Additional Respiratory Exam Details: Markedly decreased breath sounds. Sounds consistent with BiPAP. - Cardiovascular Cardiovascular Exam: POSITIVE: RRR, No Murmur, No Clicks, No Gallops, No Rubs, JVD - GI/Abdominal GI/Abdominal Exam: POSITIVE: Normal Bowel Sounds, Non Tender, Non Distended, Soft - Rectal Rectal Exam: POSITIVE: Deferred - External Exam: POSITIVE: Deferred Exam: POSITIVE: Deferred, Keys Catheter in Place (Minimal urine output noted. This is despite Lasix in the emergency room.) - Extremities Extremities Exam: POSITIVE: No Clubbing Present, +2 Edema - Neurological Neurological Exam: POSITIVE: Altered (Obtunded mental status. With slight improvement in blood gas and CO2, the patient was able to answer some yes or no questions when she answered yes to wanting to go off of BiPAP and to be kept comfortable. She has response to pain.) Results - Labs CBC and BMP: 12/02/16 22:14 12/02/16 22:14 Labs - Last 24 Hours: Laboratory Results 12/02/16 12/02/16 12/03/16 Range/Units 22:14 22:38 00:05 WBC 10.48 (4.8-10.8) 10^3/uL RBC 4.01 L (4.20-5.40) 10^6/uL Hgb 11.1 L (12.0-16.0) g/dL Hct 37.2 (37.0-47.0) % MCV 92.8 (81-99) FL MCH 27.7 (27-31) PG MCHC 29.8 L (33-37) g/dL RDW Std Deviation 53.5 H (39-50) fL RDW Coeff of Elli 16.3 H (11.5-14.5) % Plt Count 214 (140-350) 10*3/uL MPV 8.6 (7.4-12.2) FL Immature Gran % (Auto) 0.7 (0-5) % Neut % (Auto) 54.6 (50-80) % Lymph % (Auto) 30.5 (10-50) % Cross % (Auto) 10.5 (5-15) % Eos % (Auto) 2.8 (0-8) % Baso % (Auto) 0.9 (0-1) % Immature Gran # (Auto) 0.07 10*3/UL Neut # (Auto) 5.73 10*3/UL Lymph # (Auto) 3.20 10*3/uL Cross # (Auto) 1.10 H (0.3-0.8) 10*3/UL Eos # (Auto) 0.29 10*3/UL Baso # (Auto) 0.09 10*3/UL WBC Morphology Comment Normal morphology (NORM) Plt Morphology Comment Normal morphology (NORM) RBC Morph Comment Normal morphology (NORM) PT 10.8 (9.7-11.4) secs INR 1.05 (0.00-5.90) N/A D-Dimer 6.89 H (0.00-0.59) mg/L ABG pH 7.027 L 7.15 L (7.35-7.45) ABG pCO2 > 130 H 121 H (34-38) MMHG ABG pO2 0 L 57 L (65-75) MMHG ABG HCO3 0 L 42 H (22-26) ABG Total CO2 0 L 46 H (23-27) MMOL/L ABG O2 Saturation 0 L 77 L (90-100) % ABG Base Excess 0 14 H (-2-2) MMOL/L Lanre Test Yes Yes FiO2 100 70 Sodium 142 (135-145) meq/L Potassium 5.0 (3.8-5.2) meq/L Chloride 93 L (98-112) meq/L Carbon Dioxide 40 H (23-33) meq/L Anion Gap 9 (5-20) BUN 17 (7-22) mg/dL Creatinine 0.9 (0.50-1.20) mg/dL Estimated GFR (>60 ml/min/1.73m(2)) BUN/Creatinine Ratio 18.88 (6-20) Glucose 181 H (78-110) mg/dL Calculated Osmolality 300.0 H (267-292) mOsm/kg Calcium 9.6 (8.7-10.7) mg/dL Magnesium 1.5 L (1.6-2.4) mg/dL Total Bilirubin 0.8 (0.3-1.2) mg/dL AST 28 (8-39) IU/L ALT 30 (9-52) IU/L Alkaline Phosphatase 61 (38-126) IU/L Troponin I 0.043 H (< 0.040) ng/mL NT-Pro-B Natriuret Pep 7270 H (0-450) PG/ML Total Protein 6.1 (6.1-8.0) g/dL Albumin 3.5 (3.5-4.8) g/dL Globulin 2.6 (2.50-4.10) g/dL Albumin/Globulin Ratio 1.30 (1.3-2.0) mg/g 12/03/16 12/03/16 Range/Units 01:28 02:47 WBC (4.8-10.8) 10^3/uL RBC (4.20-5.40) 10^6/uL Hgb (12.0-16.0) g/dL Hct (37.0-47.0) % MCV (81-99) FL MCH (27-31) PG MCHC (33-37) g/dL RDW Std Deviation (39-50) fL RDW Coeff of Elli (11.5-14.5) % Plt Count (140-350) 10*3/uL MPV (7.4-12.2) FL Immature Gran % (Auto) (0-5) % Neut % (Auto) (50-80) % Lymph % (Auto) (10-50) % Cross % (Auto) (5-15) % Eos % (Auto) (0-8) % Baso % (Auto) (0-1) % Immature Gran # (Auto) 10*3/UL Neut # (Auto) 10*3/UL Lymph # (Auto) 10*3/uL Cross # (Auto) (0.3-0.8) 10*3/UL Eos # (Auto) 10*3/UL Baso # (Auto) 10*3/UL WBC Morphology Comment (NORM) Plt Morphology Comment (NORM) RBC Morph Comment (NORM) PT (9.7-11.4) secs INR (0.00-5.90) N/A D-Dimer (0.00-0.59) mg/L ABG pH 7.22 L 7.20 L (7.35-7.45) ABG pCO2 95 H 98 H (34-38) MMHG ABG pO2 58 L 51 L (65-75) MMHG ABG HCO3 39 H 39 H (22-26) ABG Total CO2 42 H 41 H (23-27) MMOL/L ABG O2 Saturation 81 L 74 L (90-100) % ABG Base Excess 11 H 10 H (-2-2) MMOL/L Lanre Test Yes Yes FiO2 50 50 Sodium (135-145) meq/L Potassium (3.8-5.2) meq/L Chloride (98-112) meq/L Carbon Dioxide (23-33) meq/L Anion Gap (5-20) BUN (7-22) mg/dL Creatinine (0.50-1.20) mg/dL Estimated GFR (>60 ml/min/1.73m(2)) BUN/Creatinine Ratio (6-20) Glucose (78-110) mg/dL Calculated Osmolality (267-292) mOsm/kg Calcium (8.7-10.7) mg/dL Magnesium (1.6-2.4) mg/dL Total Bilirubin (0.3-1.2) mg/dL AST (8-39) IU/L ALT (9-52) IU/L Alkaline Phosphatase (38-126) IU/L Troponin I (< 0.040) ng/mL NT-Pro-B Natriuret Pep (0-450) PG/ML Total Protein (6.1-8.0) g/dL Albumin (3.5-4.8) g/dL Globulin (2.50-4.10) g/dL Albumin/Globulin Ratio (1.3-2.0) mg/g - Imaging Status: Image Reviewed by Me (Chest x-ray, on my view, shows significant cardiomegaly, pacer that appears to be in the correct location, and bilateral pleural effusions. CT scan of the chest, on my view, shows large bilateral pleural effusions, possible pneumonia on the right side.) Assessment and Plan - Patient Problems (1) Acute and chronic respiratory failure Current Visit: No Status: Acute Qualifiers: Respiratory failure complication: hypoxia and hypercapnia Qualified Description: Acute on chronic respiratory failure with hypoxia and hypercapnia Qualifier Code(s): (J96.21) Acute and chronic respiratory failure with hypoxia (2) Pulmonary edema Current Visit: Yes Status: Acute (3) Congestive heart failure Current Visit: Yes Status: Acute Qualifiers: Congestive heart failure type: unspecified congestive heart failure type Congestive heart failure chronicity: acute on chronic Qualified Description: Acute on chronic congestive heart failure, unspecified congestive heart failure type Qualifier Code(s): (I50.9) Heart failure, unspecified (4) History of atrial fibrillation Current Visit: No Status: Acute (5) Pulmonary hypertension Current Visit: Yes Status: Acute (6) Acute hypoxemic respiratory failure Current Visit: Yes Status: Acute (7) Acute hypercapnic respiratory failure Current Visit: Yes Status: Acute (8) Acute cor pulmonale Current Visit: Yes Status: Acute - Assessment / Plan Additional Assessment/Plan Details: Admit the patient. After significant discussion regarding end-of-life decision-making, the patient' s children, Paula, Bradford, and Yolanda, and myself have come to the conclusion that regardless of any medical or aggressive and invasive therapies, the patient will of acute respiratory failure and end-stage pulmonary hypertension. The family now at this time requests that I treat the patient's comfort and primary symptoms of pain and respiratory distress, but without the use of invasive measures such as BiPAP, intubation, or other modalities of therapy. appears imminent based on the clinical scenario we are facing here tonight/this morning. We will treat with Valium for anxiety and her seizure activity, fentanyl for pain as the patient has a morphine allergy. We phoned a dentist/owner to discuss with the patient, and her family. He is at bedside now. I discussed with the patient's children that I do not think we can get her stable enough to get her home to pass on at home. The patient had decided DO NOT RESUSCITATE, DO NOT INTUBATE, and the children have chosen to respect those wishes tonight/this morning. Photo / Body Diagrams - Uploaded Photos Uploaded Photos:
[2016-12-03] MEDS ORDERED: diphenhydrAMINE 50 MG/1 ML VIAL IVP ONE (03:23)
[2016-12-03 03:25] LABS: ABG BASE EXCESS 10 MMOL/L (-2-2); ABG OXYGEN SATURATION 74 % (90-100); ABG PCO2 98 MMHG (34-38); ABG PO2 51 MMHG (65-75); ALLEN TEST Yes; COLLECTION SITE L Radius
[2016-12-03] MEDS: MORPHINE SULFATE 10 MG/1 ML IVP ONE ×2 (03:31→05:35)
[2016-12-03] MEDS ORDERED: fentaNYL Inj 100 MCG/2 ML VIAL IVP PRN (03:38)
[2016-12-03] MEDS ORDERED: fentaNYL Inj 250 MCG/5 ML VIAL IVP ONE (03:38)
--- NOTE | 2016-12-03 04:33 | DCSUMMARY ---
Hospitalization Summary Admit Date: 12/03/16 Discharge Date: 12/03/16 Primary Diagnosis:: acute cor pulmonale, end-stage Secondary Diagnosis:: Acute congestive heart failure, secondary to right heart failure, end-stage Hospital Course: This is an 81-year-old female who was admitted with acute cor pulmonale, acute end-stage pulmonary hypertension, and acute heart failure. She was in acute and on chronic hypercapnic and hypoxemic respiratory failure. Despite aggressive efforts with BiPAP therapy, the patient did not respond to therapy and in discussion with the patient, her children, it was decided that we should treat primary symptoms and treat pain and discomfort, withdraw BiPAP, and let the patient pass on as she would imminently pass on regardless of any medical or invasive therapies we could offer. The patient succumbed to the above issues and at 4:22 AM on 2016. On examination, she had no heartbeat, she has no respirations, no response to pain. No spontaneous respirations. And no respirations on auscultation. Final cause of , severe end-stage pulmonary hypertension. Exam - Vitals Vital Signs: Vital Signs Height 5 ft 5 in Weight 207 lb Patient Problems - Patient Problem List (1) Acute and chronic respiratory failure Current Visit: No Status: Acute Qualifiers: Respiratory failure complication: hypoxia and hypercapnia Qualified Description: Acute on chronic respiratory failure with hypoxia and hypercapnia Qualifier Code(s): (J96.21) Acute and chronic respiratory failure with hypoxia (2) Pulmonary edema Current Visit: Yes Status: Acute (3) Congestive heart failure Current Visit: Yes Status: Acute Qualifiers: Congestive heart failure type: unspecified congestive heart failure type Congestive heart failure chronicity: acute on chronic Qualified Description: Acute on chronic congestive heart failure, unspecified congestive heart failure type Qualifier Code(s): (I50.9) Heart failure, unspecified (4) History of atrial fibrillation Current Visit: No Status: Acute (5) Pulmonary hypertension Current Visit: Yes Status: Acute (6) Acute hypoxemic respiratory failure Current Visit: Yes Status: Acute (7) Acute hypercapnic respiratory failure Current Visit: Yes Status: Acute (8) Acute cor pulmonale Current Visit: Yes Status: Acute
[2016-12-03] MEDS ORDERED: ENOXAPARIN SODIUM 40 MG/0.4 ML SYRINGE SUBCUT SCH (09:00)
--- NOTE | 2016-12-04 06:00 | EKG ---
[address] [place] [address] Measurements Intervals [place] Rate: 77 P: -85 AK: 148 QRS: -17 QRSD: 182 T: 89 QT: 429 QTc: 461 Interpretive Statements ELECTRONIC ATRIAL PACEMAKER ELECTRONIC VENTRICULAR PACEMAKER ABNORMAL RHYTHM ECG Compared to ECG 11/21/2016 00:48:06 Pacing now evident with improved rate (up from 52 BPM) Electronically Signed On 12-04-16 10:23:29 MDT by Carlos Swann MD [email or web address]
--- NOTE | 2016-12-07 14:31 | DI ---
COMPUTED TOMOGRAPHY ANGIOGRAPHY, PULMONARY ARTERY. CLINICAL STATEMENT: Hypoxia and elevated d-dimer. COMPARISON: CT dated 03/25/2014. TECHNIQUE: IV contrast administration of volume of iodine-based contrast medium. CTA chest to opacify pulmonary arteries. MPR. Additional MIP images obtained. COMMENTS: Diffuse enlargement of the thyroid gland. Tubes/Lines: Interval placement of dual lead cardiac pacemaker. Lungs: Moderate sized bilateral pleural effusions and pulmonary edema present with septal thickening and fatuma und glass opacities. No pneumothorax. Atheromatous calcifications are present in the arch of a tortuous aorta. Pulmonary emboli: No evidence of acute or chronic pulmonary emboli. Heart: Moderate cardiomegaly without pericardial effusion. Trace pericardial effusion. Vessels: Atherosclerotic vascular disease of the coronary arteries and thoracic aorta. Mediastinum: Several, small mediastinal lymph nodes which are not enlarged by size criteria. Abdomen: Limited evaluation of the upper abdominal viscera without acute abnormality identified. Sternum, ribs and thoracic spine: No acute osseous finding identified. Cervical fusion hardware, oste openia and multilevel thoracic spine degenerative changes are present. IMPRESSION: 1. No CT evidence of acute or chronic pulmonary embolism. 2. Cardiomegaly, pulmonary edema and moderate volume bilateral pleural effusions. 3. Interval placement of cardiac pacemaker.
--- NOTE | 2016-12-07 14:32 | DI ---
RADIOGRAPH, CHEST, PORTABLE. CLINICAL STATEMENT: Dyspnea. COMPARISON: Prior radiographs 11/20/2016. TECHNIQUE: Single portable view of the chest. COMMENTS: Interval placement of dual lead cardiac pacemaker. Cardiomediastinal silhouette is enlarged noting bilateral small-moderate effusions and pulmonary prem a. No pneumothorax. Atheromatous calcifications are present in the arch of a tortuous aorta. Multilevel thoracic spine endplate degenerative changes. IMPRESSION: 1. Interval pacemaker placement. 2. Probable congestive heart failure given cardiomegaly, pulmonary vascular congestion and bilateral effusions. Followup radiographs for trending requested.
== END 2016-12-03 04:22 | disposition expired | DRG 175 ==
LOC: ER 22:22 → MED/SURG 12-03 01:36
PROVIDERS: ADMIT Family Medicine; ATTEND Family Medicine
DX: J81.1 Chronic pulmonary edema (principal); J96.90 Respiratory failure, unspecified, unspecified whether with hypoxia or hypercapnia; R40.1 Stupor; I26.09 Other pulmonary embolism with acute cor pulmonale; I50.9 Heart failure, unspecified; I27.2 Other secondary pulmonary hypertension
CPT/HCPCS: 36415; 36600; 71010; 71275; 80053; 82803; 83735; 83880; 84484; 85025; 85379; 85610; 87040; 93005; 93010; 94660; 99284; J1200; J1940; J2270; J3010; J3360